=== PATIENT | male | born 1960 | race Caucasian/White ===

== ENCOUNTER 2016-11-09 11:28 | Day surgery (SDC) | payer BC ==
[~2016-11-09] VITALS: Ht 188 cm; Wt 93.0 kg
[2016-11-09] MEDS ORDERED: MIDAZOLAM 1 MG/ML, 2ML ONE (11:29)
[2016-11-09] MEDS ORDERED: FENTANYL PF 250 MCG/5ML ONE (11:29)
[2016-11-09] MEDS ORDERED: LACTATED RINGERS 1,000 ML IV SCH (11:52)
[2016-11-09 11:53] VITALS: BP 121/82
[2016-11-09] MEDS ORDERED: ROPIvacaine/PF 0.2%, 20 ML ONE (11:58)
[2016-11-09] MEDS ORDERED: DEXAMETHASONE 4 MG/ML, 1ML ONE (12:25)
[2016-11-09] MEDS ORDERED: CEFAZOLIN 1,000 MG ONE (12:25)
[2016-11-09] MEDS ORDERED: PROPOFOL 10 MG/ML, 20ML ONE (12:25)
[2016-11-09] MEDS ORDERED: SUCCINYLCHOLINE 20 MG/ML, 10ML ONE (12:25)
[2016-11-09] MEDS ORDERED: VITAMIN C (12:55)
[2016-11-09] MEDS ORDERED: MULTIVITAMIN (12:55)
[2016-11-09] MEDS ORDERED: OXYC5CAP4 PO (12:55)
[2016-11-09] MEDS ORDERED: OXYcodone 5 MG/5 ML ORAL.SOL UDC ONE (14:00)
[2016-11-09] MEDS ORDERED: FENTANYL PF 100 MCG/2ML ONE (14:00)
[2016-11-09] MEDS ORDERED: ACETAMINOPHEN 325 MG TABLET ONE (14:00)
[2016-11-09] MEDS ORDERED: ACETAMINOPHEN 650 MG/20.3 ML UDC ONE (14:00)
[2016-11-09] MEDS: FENTANYL PF 100 MCG/2ML IV PRN ×2 (14:02→14:20)
[2016-11-09] MEDS ORDERED: METOPROLOL 1 MG/ML, 5ML IV PRN (14:30)
[2016-11-09] MEDS ORDERED: LABETALOL 5MG/ML, 20ML IV PRN (14:30)
[2016-11-09] MEDS ORDERED: EPHEDRINE 50 MG/ML, 1ML IVPush PRN (14:30)
[2016-11-09] MEDS ORDERED: hydrALAzine 20 MG/ML, 1ML IV PRN (14:30)
[2016-11-09] MEDS ORDERED: ONDANSETRON 2MG/ML, 2ML IVPush PRN (14:30)
[2016-11-09] MEDS ORDERED: HYDROmorphone 1 MG/ML, 1ML IV PRN (14:30)
[2016-11-09] MEDS ORDERED: ALBUTEROL SULFATE 2.5 MG/3 ML NPPB PRN (14:30)
[2016-11-09] MEDS ORDERED: ACETAMINOPHEN 325 MG TABLET PO PRN (14:30)
[2016-11-09] MEDS ORDERED: MEPERIDINE/PF 25MG/0.5ML IVPush PRN (14:30)
[2016-11-09] MEDS ORDERED: OXYcodone 5 MG/5 ML ORAL.SOL UDC PO PRN (14:30)
[2016-11-09] MEDS ORDERED: MIDAZOLAM 1 MG/ML, 2ML IV PRN (14:30)
[2016-11-09] MEDS ORDERED: HYDROmorphone 2 MG/ML, 1ML ONE (14:37)
== END 2016-11-09 17:40 | disposition home or self-care (01) ==
LOC: OUT 11:28
PROVIDERS: ATTEND Orthopaedic Surgery Foot and Ankle Surgery
DX: S42.022A Displaced fracture of shaft of left clavicle, initial encounter for closed fracture (principal); Z87.891 Personal history of nicotine dependence; Z72.89 Other problems related to lifestyle; W19.XXXA Unspecified fall, initial encounter; Y93.9 Activity, unspecified; Y92.9 Unspecified place or not applicable; Y99.9 Unspecified external cause status
CPT/HCPCS: 23515; 73000; 76000; C1713; J0330; J0690; J1100; J1170; J2250; J2704; J2795; J3010; J7120; 76001